=== PATIENT | female | born 1975 | race Caucasian/White ===

== ENCOUNTER 2022-12-06 03:20 | Emergency (ER) | payer BC ==
[~2022-12-06] VITALS: Ht 152.4 cm; Wt 54.4 kg
[2022-12-06 03:30] VITALS: BP 123/80; PULSE 85; RESP 17; TEMP 97.7; O2SAT 98
[2022-12-06] MEDS ORDERED: NA P133E RC (04:39)
[2022-12-06] MEDS ORDERED: MIRABULK PO (04:39)
== END 2022-12-06 04:42 | disposition home or self-care (01) ==
LOC: MED 03:20
DX: K59.00 Constipation, unspecified (principal); Z79.899 Other long term (current) drug therapy
CPT/HCPCS: 99282